=== PATIENT | female | born 1970 | race Caucasian/White ===

== ENCOUNTER 2017-11-09 13:57 | Day surgery (SDC) | payer OTHER, SELFPAY ==
[2017-10-29 14:31] VITALS: BMI 20.4
[2017-11-09] VITALS (7 sets, daily range): BP systolic 104–137; BP diastolic 67–82; PULSE 73–96; RESP 12–18; TEMP 36.3–36.8; O2SAT 97–100
[2017-11-09] MEDS: LACTATED RINGERS 1,000 ML 42 ML IV (14:25)
[2017-11-09] MEDS: ONDANSETRON 4 MG/2 ML INJ IV (14:31)
--- NOTE | 2017-11-09 15:13 | PM.PREOP ---
Pre-operative Note Interval Note Pre-op Check: Yes History & Physical Reviewed by Physician Changes: No
--- NOTE | 2017-11-09 15:44 | SUR.OPER ---
Lithotomy on padded OR bed, head on pillow, arms secured on padded arm boards at <90 degrees abduction. Legs secured in padded yellow fins stirrups.
--- NOTE | 2017-11-09 16:05 | SUR.OPER ---
Lithotomy on padded OR bed, head on pillow, arms secured on padded arm boards at <90 degrees abduction. Legs secured in padded yellow fins stirrups.
[2017-11-09] MEDS: LIDOCAINE 1% 30 ML INJ INJ (16:11)
--- NOTE | 2017-11-09 16:30 | PM.GYNOP.1 ---
Operative Date/Time/Diagnoses Date of procedure: 11/09/17 Time of procedure: 16:30 Pre-op diagnosis: endometrial polyp Post-op diagnosis: other (probable submucous fibroid) Procedure: Procedures Operation Date: 11/09/17 14:45 Actual Procedures Side Surgeon p Hysteroscopy Nik Torres MD
--- NOTE | 2017-11-09 16:32 | PM.GYNOP.1 ---
Procedure: Procedures Operation Date: 11/09/17 14:45 Actual Procedures Side Surgeon p Hysteroscopy Nik Torres MD Indications: breakthrough bleeding, endometrial mass Associate Store Director: Crystal Javed Anesthesia Type: General and Peripheral nerve block Operative Notes Findings: EUA revealed a normal anteverted uterus and normal adnexa Operative findings: Uterus sounded to 7 cm. Endometrial mass originating from the fundus with the appearance of a submucous myoma. Just lateral to origin of myoma, perforation, likely caused by hysteroscope. Closure Type: not applicable Specimen(s): none Estimated blood loss (mL): 10 Blood products transfused: none Procedure in detail: The patient was taken to the operating room and laid supine on the operating table where she was given general anesthesia by LMA. A time-out was performed. She was placed in low lithotomy stirrups and prepped and draped in the usual sterile fashion. An exam under anesthesia was performed. A speculum was placed in her vagina and a paracervical block of 1% lidocaine with a total of 20cc was placed. The cervix was sounded to 7 cm and dilated to a #8 Hegar dilator. A 12 degree hysteroscope was inserted into the uterine cavity without difficulty, but visualization was challenging due to the large myoma filling the visual field and yellow fat and bowel was also noted in the visual field. When the hysteroscope was withdrawn, a fundal perforation immediately adjacent to the origin of the myoma was seen. It was elected to terminate the case at this point. It was judged that the likelihood of untoward sequelae of a fundal perforation was small and did not warrant further intervention. Complications: other (fundal perforation) Post-operative Condition: stable Disposition: PACU Plan for aftercare: home
--- NOTE | 2017-11-09 16:47 | SUR.PHASEI ---
pt resting comfortably. vss. dr trujillo to talk to pt's mom.
[2017-11-09] MEDS: fentaNYL 100 MCG/2 ML INJ 50 MCG IV (17:02)
--- NOTE | 2017-11-09 17:03 | SUR.PHASEI ---
dr trujillo spoke to pt at the bedside, pt c/o back pain, medicated with fentanyl.
[2017-11-09] MEDS: KETOROLAC 30 MG/ML VIAL IV (17:14)
--- NOTE | 2017-11-09 17:18 | SUR.PHASEI ---
dr rodriguez to bedside- torodol given as ordered.
--- NOTE | 2017-11-09 17:23 | SUR.PHASEI ---
to opd stable no drainage on steve pad
--- NOTE | 2017-11-09 18:05 | SUR.PHASEII ---
pt dressed and ready to go, vomited approximately 100 mls of fld. felt better after wards. dr burgos aware. pt left when ready and left in stable condition, quarter size bloody drainage on peripad. abdomen sot.
== END 2017-11-09 18:00 | disposition home or self-care (01) ==
PROVIDERS: Visit Provider Obstetrics & Gynecology
PROC: 0UDB8ZZ Extraction of Endometrium, Via Natural or Artificial Opening Endoscopic (ICD-10-PCS; CPT 58558; principal; 2017-11-09 14:45)
DX: D25.9 Leiomyoma of uterus, unspecified (principal); S37.69XA Other injury of uterus, initial encounter; X58.XXXA Exposure to other specified factors, initial encounter
CPT/HCPCS: 58555; J1100; J1885; J2250; J2405; J2704; J3010

== ENCOUNTER → 2017-12-16 09:32 | Outpatient (CLI) | payer OTHER, SELFPAY ==
[2017-12-16 09:57] LABS: Add Manual Diff / Slide Review NO; Basophils Percent Auto 0.8 % (0-2); Eosinophils Percent Auto 1.2 % (2-4); Hematocrit 38.2 % (36-46); Hemoglobin 13.3 g/dL (12.0-16.0); Lymphocytes Percent Auto 24.8 % (25-40); Mean Corpuscular HGB Conc 34.7 % (30-36); Mean Corpuscular Hemoglobin 30.5 PG (26-34); Mean Corpuscular Volume 87.8 fL (80-100); Neutrophils Absolute Auto 3900 /uL (3000-5900); Neutrophils Percent Auto 66.2 % (50-75); Platelet Count 231 X10^3/uL (150-400); Red Blood Cell Count 4.35 X10^6/uL (4.0-5.2); White Blood Cell Count 5.9 X10^3/uL (4.5-11.0)
[2017-12-16 10:12] LABS: Appearance Urine UA CLEAR; Bilirubin Urine UA NEGATIVE (NEGATIVE); Color Urine UA YELLOW; Glucose Urine UA NEGATIVE (Normal); Ketones Urine UA TRACE (NEGATIVE); Leukocyte Esterase Urine UA NEGATIVE (NEGATIVE); Nitrite Urine UA Negative (Negative); Occult Blood Urine UA 3+ (Negative); Protein Urine UA NEGATIVE (Negative); Urobilinogen Urine UA 0.2 E.U./dL (0.2)
[2017-12-16 11:17] LABS: Bacteria Urine Moderate (10-30); Mucus Urine 2+ (Negative); RBC Urine 5-10/HPF (0-5/HPF); Squamous Epithelial Cell Urine 1-5 /HPF; WBC Urine 0-1/HPF (0-5/HPF)
== END ==
PROVIDERS: Family Provider Family Medicine; PCP Family Medicine; Visit Provider Obstetrics & Gynecology
DX: N93.9 Abnormal uterine and vaginal bleeding, unspecified (principal)
CPT/HCPCS: 36415; 81001; 85025; 86850; 86900; 86901; 87086

== ENCOUNTER 2017-12-18 08:16 | Inpatient (IN) | payer OTHER, SELFPAY ==
[2017-12-16 12:18] VITALS: BMI 18.9
[2017-12-18] VITALS (14 sets, daily range): BP systolic 90–115; BP diastolic 49–78; PULSE 64–95; RESP 15–18; TEMP 36.2–37.2; O2SAT 97–100; BMI 18.9
--- NOTE | 2017-12-18 | PATH_ITS ---
[facility] Accession Number: [id number] . 01 Material submitted: . UTERUS, CERVIX AND BILATERAL FALLOPIAN TUBES . 02 Diagnosis: Uterus Including Cervix With Bilateral Fallopian Tubes: Inactive endometrium, negative for atypia. Single submucous leiomyoma, fundus. Bilateral chronic salpingitis with associated tubal scarring. MRV/12/23/2017 . 02 Electronically signed: . Aidan Jones MD, Pathologist NPI- [id number] . 01 Gross description: . Received in formalin, labeled uterus, cervix and bilateral fallopian tubes, is a uterus (66 grams, 4.0 cm AP, 8.1 cm SI, 4.7 cm ML) with an attached fimbriated fallopian tube (length-6.1 cm, diameter-0.5 cm) and a detached fimbriated fallopian tube (length-6.0 cm, diameter-0.5 cm). The ovaries are absent. The specimen cannot be oriented as to anterior and posterior. The cervix (2.0 cm AP, 3.0 cm ML) has a transverse os and patent endocervical canal. The endometrial cavity contains a solid firm white whorled well-circumscribed homogenous pedunculated nodule (1.8 x 1.2 x 0.8 cm). The endometrium (average thickness-0.1 cm) is mares-ordoñez smooth and flat. The myometrium (thickness-1.3 cm) is mares-white with a lacy appearance and is, otherwise, unremarkable. The serosa is pale mares smooth and dull. The fallopian tubes have dark maroon dull serosa and ordoñez unremarkable lumens. Section code: (A1) cervix; (A2) cervix, opposite side; (A3-A5) endomyometrium; (A6-A8) endomyometrium, opposite side; (A9) attached fallopian tube, cordage sales representative serial section; (A10) attached fimbria, bivalved, entirely submitted; (A11) detached fallopian tube, cordage sales representative serial section; (A12) detached fimbria, bivalved, entirely submitted. ([id number]) /[facility] . 02 Pathologist provided ICD-10: D25.0 . 02 CPT . 241569 Specimen Comment: A duplicate report has been generated due to demographic updates. Performed at: 01 [facility] [address] [id number] MD German Parada MD Phone: [phone] Performed at: 02 [facility] [address] [place] [id number] MD Anton James MD Phone: [phone]
[2017-12-18] MEDS: SCOPOLAMINE 1 PATCH TOP (08:30)
[2017-12-18] MEDS: LACTATED RINGERS 1,000 ML 42 ML IV (08:40)
--- NOTE | 2017-12-18 08:40 | PM.PREOP ---
Pre-operative Note Interval Note Pre-op Check: Yes History & Physical Reviewed by Physician Changes: No
[2017-12-18] MEDS: CEFAZOLIN 2 GM/100 ML FROZ.PIGGY IV (09:30)
--- NOTE | 2017-12-18 10:20 | SUR.OPER ---
Lithotomy on padded OR bed. Salix Pad Positioner under torso. Head on pillow, arms padded and tucked at sides. Legs secured in padded yellow fins stirrups.
[2017-12-18] MEDS: BUPIVACAINE 0.25% (PF) VIAL 30 ML INJ (10:28)
[2017-12-18] MEDS: LIDOCAINE 1% W/EPI INJ 20 ML INJ (10:29)
[2017-12-18] MEDS: LACTATED RINGERS 1,000 ML 100 ML IV (13:21)
[2017-12-18] MEDS: OXYCODONE/ACETAMINOPHEN 5/325 TABLET 1 TAB PO ×2 (13:21→18:31)
--- NOTE | 2017-12-18 14:00 | P.OP_ITS ---
Operative Date/Time/Diagnoses Date of procedure: 12/18/17 Time of procedure: 09:30 Pre-op diagnosis: Abnormal uterine bleeding, submucosal leiomyoma Post-op diagnosis: other (SALAS, abdominal and pelvic adhesions) Procedure: Procedures Operation Date: 12/18/17 09:15 Actual Procedures Side Surgeon p Laparoscopic Assisted Vag Hysterectomy;Bilat salpingectomy,poss bilat oophorectomy,poss cystoscopy Crystal Javed MD Indications: The patient is a 47-year-old 4 para 1 abortus 3 (living 2) female here for laparoscopic-assisted vaginal hysterectomy for definitive surgical management of breakthrough bleeding. Her ultrasound showed a suspected recurrent endometrial polyp (versus possible persistent polyp from last year). Attempts at removal of the polyp with hysteroscopy x2 have been ineffective for long-term management. Her 1st hysteroscopy was last year, and the polyp was thought to have been removed with the D&C. The 2nd hysteroscopy ended with uterine perforation prior to the start of the dissection. Following counseling regarding management options (repeat trial of hysteroscopy versus definitive surgical management with hysterectomy), she is desiring hysterectomy. She has a history of laparoscopy in 2000, which was performed for infertility and surgical debulking of endometriosis. She reports that surgery was complicated and took much longer than anticipated. However she cannot recall if excessive scar tissue was noted. The expectations, risks, benefits, alternatives, and limitations of surgery were discussed, and the consent was reviewed and signed prior to the date of surgery. Surgeon: Crystal Javed Food And Beverage Cashier: Nik Torres Anesthesia Type: General and Local (0.25% marcaine, 1% lidocaine with epi) Operative Notes Findings: Exam under anesthesia: The uterus is approximately 6 weeks in size and anteverted with no adnexal masses palpable. It felt mobile in the pelvis. Operative findings: Omental adhesions were noted to the right flank anterior peritoneum. There were also filmy bowel adhesions to the right lower quadrant. 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 The left distal fallopian tube was adhered to sigmoid epiploica. The right fallopian tube appeared slightly clubbed. The ovaries were normal in appearance bilaterally. There were scattered, 1-2 mm cystic lesions at the posterior right aspect of the uterus, anterior and slightly adjacent to the right uterosacral ligament, suggestive of possible endometriosis. However, there were no other lesions suggestive of endometriosis. Filmy adhesions were also noted from the bladder to the right round ligament area. Ureteral peristalsis was noted at the completion of the hysterectomy dissection. Closure Type: primary Specimen(s): left tube, right tube and uterus (Uterus and cervix) Applied: catheter Estimated blood loss (mL): 25 Blood products transfused: none Procedure in detail: The patient was taken to the operating room, where general endotracheal anesthesia was administered without complications. The patient was placed into the low dorsal lithotomy position with her lower extremities in Yellofin stirrups. Exam under anesthesia was then performed with the findings noted above. Perineum, vagina, and abdomen were then prepped and draped in a sterile fashion. A Hickman catheter was then placed. Procedure time-out was then performed. Attention was first turned to the perineum for placement of the uterine manipulator. A sterile bivalve speculum was inserted into the vagina, then the anterior lip of the cervix was grasped with a single-tooth tenaculum. The cervix was then serially dilated using Gee dilators until a ZUMI uterine manipulator could be advanced. The balloon was inflated, then the tenaculum and speculum removed from the vagina. Local anesthetic was then injected infraumbilically using 0.25% Marcaine. A vertical skin incision was then made with a scalpel below the umbilicus measuring approximately 7 mm in length. The abdominal wall was then grasped and tented up while a Veress needle was inserted through the incision. Saline drop test was suggestive of intraperitoneal placement. Carbon dioxide gas insufflation was then performed with appropriate opening pressures noted. After instilling approximately 2 L of carbon dioxide, a 5 mm 0 degree laparoscope within a 5 mm trocar was inserted through the anterior layers of the abdominal wall using Optiview technique. The abdomen and pelvis were visualized with the findings as noted above. The patient was placed into Trendelenburg position for better visualization. A second and third trocar was inserted at the patient' s lower quadrants. These were done by first instilling local anesthetic, then incising the skin and inserting a 5 mm trocar under direct visualization using the laparoscopic. An atraumatic grasper was then utilized to manipulate the tissue and improve visualization throughout the pelvis. Attention was first turned to the left distal fallopian tube, which was pulled medially and superiorly. The left tubo-ovarian pedicle was then cross-clamped, cauterized, and cut using the PlasmaKinetic, and the left mesosalpinx dissected to separate the left tube from the ovary. The left round ligament was then cross clamped, cauterized, and cut. Any bleeding was controlled with Bovie cautery The anterior leaf of the broad ligament was undermined with the PlasmaKinetic, and the left aspect of the bladder flap created using Bovie cautery. The left utero-ovarian pedicle was then cross clamped, cauterized, and cut, freeing the left ovary from the uterus and leaving the uterus in situ. Some residual para uterine tissue was freed with Bovie cautery and gentle traction, skeletonizing the left uterine vessels. The left uterine vein and artery were then cross clamped, cauterized, and cut using the PlasmaKinetic, and additional cautery applied as needed to achieve hemostasis. Attention was then turned to the patient's right adnexa. The right fallopian tube dissection was initiated at the cornual region, as the tubo-ovarian ligament was less well seen on this side. The cornual tube was cross-clamped, cauterized, and cut, then the mesosalpinx cauterized and cut until the tubo-ovarian pedicle was cross -clamped, cauterize, and cut. The tube was removed from the abdomen and later sent with the uterine pathology. The right round ligament was then cross clamped, cauterized, and cut and the right anterior leaf of the broad ligament was undermined with the PlasmaKinetic to create the right side of the bladder flap using Bovie cautery. This incision was extended to the midline until the dense adhesion was encountered. The right utero-ovarian pedicle was cross clamped, cauterized, and cut, freeing the right ovary from the uterus and leaving the right ovary in situ. The right uterine vessels were then skeletonized, cross clamped cauterized, and cut. Additional cautery was applied as needed to achieve hemostasis. Once hemostasis was ensured, attention was turned to the perineum for the vaginal portion of the case. Instruments were removed from the abdomen, leaving the trocars in place. The majority of the carbon dioxide gas was allowed to escape. The uterine manipulator was removed. A sterile weighted speculum was placed in the posterior vagina and a Beck placed in the anterior vagina. The cervix was grasped with double tooth tenaculum, then 1% lidocaine with epinephrine was injected circumferentially for hemostasis. A circumferential incision was then made with Bovie cautery. Using blunt dissection with the substation operator's finger the vaginal mucosa was gently pushed back off the cervix better visualizing the plane for the anterior-posterior peritoneal entry. The posterior peritoneum was grasped and incised sharply using Metzenbaum scissors. The midline of the posterior vaginal cuff and peritoneum was then tagged with an 0 Vicryl suture for later identification. The Auvard speculum was then inserted into the posterior peritoneum. The anterior peritoneum was then bluntly entered using push with the substation operator's finger and a moistened lap sponge. The Beck was then replaced. The right uterosacral ligament was cross clamped with a Barrington clamp then cut and suture ligated with an 0 Vicryl suture in a Barrington stitch fashion. This was tagged for later identification. This step was performed on the left uterosacral ligament, which was clamped then cut and suture ligated with an 0 Vicryl suture. The right cardinal and inferior uterine vessels were then cross clamped with the Barrington clamp cut and suture ligated with an 0 Vicryl suture. This step was then performed on the patient's left cardinal and uterine vessels as well. The uterus and bilateral fallopian tubes were then removed through the vagina. The pedicles were inspected. Some residual bleeding at the area of the left uterine vessels was cross-clamped with a right angle clamp then suture ligated with 0 vicryl in a for and aft fashion. Bleeding at the level of the cuff was controlled with Bovie cautery and a figure of eight suture at the left side. The peritoneum was then closed with a pursestring suture of 0 Vicryl, starting anteriorly at the bladder peritoneum including both uterosacral ligaments and skiving across the posterior peritoneum. This was tied down, and the vagina was then irrigated with sterile saline. The vaginal mucosa was then closed with serial [id number] sutures of 0 Vicryl. A sponge stick was then placed into the vagina, and attention returned to the patient's abdomen for inspection of the vaginal cuff from above. Carbon dioxide gas was then reinflated into the abdomen. The cuff was irrigated and suctioned. Some residual bleeding anterior and posterior to the cuff was controlled with a small amount of Bovie cautery. The ovaries were examined and no residual bleeding was noted. The ureters were visualized and peristalsed bilaterally. At this point the laparoscopic portion of the procedure was deemed complete. The carbon dioxide gas was allowed to escape and the trocars removed from the abdomen. The trocar sites were then closed with 4-0 Monocryl in a subcuticular fashion. Exofin skin glue was then applied. The sponge-stick was then removed from the vagina. At this point the procedure was deemed complete. Sponge, lap, and needle count were correct x3. The patient was subsequently awakened, extubated, and transferred to the PACU in stable condition. Complications: none Post-operative Condition: stable Disposition: Acute Care Plan for aftercare: Admit to spaulding for recovery overnight, then discharge to home with precautions and limitations per handout.
[2017-12-18] MEDS: DOCUSATE 250 MG CAPSULE PO (20:30)
--- NOTE | 2017-12-18 21:54 | PC.NURSE ---
SHIFT NOTE A&Ox3 pleasant and cooperative with care. lap sites x3 to abdominal area with skin slue, CDI. floyd intact, no drainage noted to steve pad. pt c/o some gassy pain and abdominal pain, especially with movement. administered PRN percocet. pt ambulated in hallway x2 this shift (total of 5 laps around the [facility]). pt with R AC IV which failed. per pt report, pre op RN had attempted multiple times to place current IV. floor staff development coordinator attempted to place IV with no success. IV left out at this time as pt not requesting any PRN IV medications, and pt verbally agreeable to increase PO intake of fluids. pt currently resting. call light within reach.
[2017-12-19] VITALS: O2SAT 98
[2017-12-19] MEDS: OXYCODONE/ACETAMINOPHEN 5/325 TABLET 1 TAB PO ×2 (02:46→09:18)
[2017-12-19 03:00] VITALS: BP 91/57; PULSE 58; RESP 16; TEMP 37.1; O2SAT 98
[2017-12-19 06:23] LABS: Add Manual Diff / Slide Review NO; Basophils Percent Auto 0.4 % (0-2); Eosinophils Percent Auto 0.2 % (2-4); Hemoglobin 10.9 g/dL (12.0-16.0); Lymphocytes Percent Auto 15.5 % (25-40); Mean Corpuscular Hemoglobin 30.3 PG (26-34); Mean Corpuscular Volume 86.5 fL (80-100); Monocytes Percent Auto 6.9 % (3-14); Neutrophils Absolute Auto 8500 /uL (3000-5900); Platelet Count 198 X10^3/uL (150-400); Red Blood Cell Count 3.58 X10^6/uL (4.0-5.2); Red Cell Distribution Width 13.6 % (11.6-14.8)
[2017-12-19 06:32] LABS: BUN Creatinine Ratio 17.5 (6-22); Blood Urea Nitrogen 14 mg/dL (7-17); Calcium 8.6 mg/dL (8.4-10.2); Carbon Dioxide 27 mmol/L (22-32); Chloride 104 mmol/L (98-107); Estimated Glomerular Filt Rate > 60.0 mL/min (>60); Glucose 92 mg/dL (70-100); HEMOLYSIS < 15 (0-50); Potassium 3.8 mmol/L (3.4-5.1); Sodium 138 mmol/L (137-145)
[2017-12-19 07:59] VITALS: O2SAT 97
[2017-12-19 08:21] VITALS: BP 97/59; PULSE 63; RESP 15; TEMP 36.8; O2SAT 97
[2017-12-19] MEDS: DOCUSATE 250 MG CAPSULE PO (09:18)
--- NOTE | 2017-12-19 11:18 | P.PN_ITS ---
Subjective Date Patient Seen: 12/19/17 Time Patient Seen: 11:15 Interval history: The patient did well overnight. She has been up and ambulating. Hickman catheter was removed, and she has been voiding without any problems. Pain has been well controlled with oral pain medication, and she is tolerating a regular diet without any nausea or vomiting. She feels ready for discharge to home today. Exam Vital Signs (past 8 hours): - 12/19/17 07:59 12/19/17 08:21 Temperature 98.2 F Pulse Rate 63 Respiratory Rate 15 Blood Pressure 97/59 L Pulse Oximetry 97 97 Oxygen Delivery Method Room Air Oxygen Flow Rate 0 Narrative Exam Narrative: General: The patient is asleep in bed but easily aroused in no apparent distress. Abdomen: Soft, flat, appropriately tender. Incisions: Laparoscopy incisions present x3. Skin edges well-approximated and covered with skin glue. There is no erythema, discharge, separation, or bruising noted. Extremities: Warm and well perfused with no clubbing, cyanosis, or edema. Objective Labs Result Diagrams: 12/19/17 06:07 12/19/17 06:07 Labs: Laboratory Results - last 24 hr 12/19/17 12/19/17 06:07 06:07 WBC 11.0 RBC 3.58 L Hgb 10.9 L Hct 31.0 L MCV 86.5 MCH 30.3 MCHC 35.0 RDW 13.6 Plt Count 198 Neut % (Auto) 77.0 H Lymph % (Auto) 15.5 L Mccook % (Auto) 6.9 Eos % (Auto) 0.2 L Baso % (Auto) 0.4 Neut # (Auto) 8500 H Sodium 138 Potassium 3.8 Chloride 104 Carbon Dioxide 27 BUN 14 Creatinine 0.80 Estimated GFR > 60.0 BUN/Creatinine Ratio 17.5 Glucose 92 Calcium 8.6 Assessment & Plan Post-op Postoperative Procedures Operation Date: 12/18/17 09:15 Actual Procedures Side Surgeon p Laparoscopic Assisted Vag Hysterectomy;Bilat salpingectomy,poss bilat oophorectomy,poss cystoscopy Crystal Javed MD Postoperative day: 1 Postoperative status: doing well Postoperative status narrative: Postoperative day 1 status post laparoscopic- assisted vaginal hysterectomy with bilateral salpingectomies and doing well. She is meeting discharge criteria. Postoperative plan: routine post-op care and discharge Postoperative plan narrative: Surgical findings and images reviewed. Reviewed postoperative precautions and limitations. Discharge to home today. Time Spent With Patient less than 15 minutes Quality VTE Deep Vein Thrombosis/Pulmonary Embolism Present on Admission: No
--- NOTE | 2017-12-19 12:19 | CM.DANOTE ---
Patient is a 47 year old female who was admitted on 12/18/17 for Hysterectomy. Pt has [employer] for insurance and her PCP is Dr. Fontana. EMR was reviewed. Per MD, pt tolerated procedure well and ambulating the halls, voiding without difficulty, and tolerating regular diet and no identified barriers to discharge. Per RN, pt has ambulated hallways with spouse multiple times and no concerns at this time. Plan: Patient to d/c home via spouse POV today and no SW needs at this time. DIONNA Clement Discharge Planning/Care Management CM Discharge Assessment Start: 12/19/17 12:17 Freq: Status: Active Protocol: Document 12/19/17 12:17 BF (Rec: 12/19/17 12:19 BF [id number]) Discharge Planning Assessment Assigned Foundry Process Engineer DIONNA Henson Advance Directives? No History Provided By Patient Medical Record Has Patient been admitted in last 30 No days? Prior Living Arrangements House Household Members spouse children Type of transporation used prior to Drives own vehicle admit Independent with ADL's Yes Is patient alert and oriented? Yes Caregiver for Another Yes: children Barriers to Discharge No Discharge Plan Home Transportation Arrangement Family to provide transport at d/c Referrals Initiated None needed Whiteboard Updated in Patient Room with No name and ext. # of Foundry Process Engineer Review Status In Process Please Provide Date Initial DC 12/19/17 Assessment Was Performed Next Review Type Continued Stay Review Pre-Anesthesia Assessment Start: 12/16/17 12:18 Freq: Status: Active Protocol: Document 12/16/17 12:18 VLYeison (Rec: 12/16/17 12:49 [facility] [id number]) Pre-Anesthesia Assessment Patient Information Reviewed Via Chart Review Seen Specialist in Last 12 Months Yes Specialist Seen Poultry Hatchery Laborer Primary Language Australian Pack Master Required No Height 165.1 cm Weight 51.71 kg Body Mass Index (BMI) 18.9 Hearing Ability Normal Visual Impairment No Limitations Visual Assist None Dentition Type Teeth, Natural Present Barriers to Learning None Hx Anesthesia Reactions Yes: Vomiting - Admitted Hx Family Anesthesia Reaction No Hx Malignant Hyperthermia No Hx Blood Transfusions No Staff Counselor No alcohol intake current Smoking Status Never smoker Substance Use Type does not use History of Falling (Recent or History of No ) Patient is completely paralyzed or No completely immobile Mental Status Oriented to own ability Is patient on oxygen? No Does patient have HANNA/SOB No Hx Sleep Apnea No CPAP/BIPAP use not prescribed Suspected Sleep Apnea No Currently Taking a Beta Verito No Hx Chest Pain No Hx SOB No Hx Syncope or Dizziness No Anti-Coagulant Therapy No Has a Manager Studio No Cardiac Testing No Hx Pacemaker/ICD No Cardiac Clearance Received Not Applicable Urinary Catheter Present No Hx Urinary Self Catheterization No Diabetes No Hx Drug Resistant Organism No Presence of External or Internal Medical No Devices Marital Status Lives With spouse children Patient Discharge Plan Description Return Home Feels Safe in Current Environment Yes Been Physically Hurt or Threatened By a No Person in Current Environment Do You Have Any Spiritual Beliefs That No May Affect Your HC Choices? Do You Have Any Cultural Practices That No May Affect Your HC Choices? Advance Directives? No PAC Comment Data taken from previous admission and current [facility] records
--- NOTE | 2017-12-19 12:21 | PC.NURSE ---
Discharge pt states pain controlled with percocet. Pt has Rx at home for post-op care including pain medication. d/c instructions provided to pt and . pt aware she has f/u apt previously scheduled with MD. Also aware to contact MD with any questions or concerns. Pt states she took all belongings home with her. Pt left hospital with and [employer] escort.
== END 2017-12-19 12:25 | disposition home or self-care (01) | DRG 743 ==
PROVIDERS: Admitting Provider Obstetrics & Gynecology; Family Provider Family Medicine; PCP Family Medicine; Visit Provider Obstetrics & Gynecology
PROC: 0UT9FZZ Resection of Uterus, Via Natural or Artificial Opening With Percutaneous Endoscopic Assistance (ICD-10-PCS; principal; 2017-12-18 09:15)
DX: N93.9 Abnormal uterine and vaginal bleeding, unspecified (principal); D25.0 Submucous leiomyoma of uterus
CPT/HCPCS: 36415; 80048; 85025; 88309; J0131; J0690; J1100; J1885; J2250; J2405; J2704; J3010

== ENCOUNTER → 2019-12-07 09:27 | Outpatient (CLI) | payer OTHER, SELFPAY ==
[2017-12-18 13:28] VITALS: BMI 18.9
--- NOTE | 2019-12-07 | DI.MG.S_ITS ---
BILATERAL DIGITAL DIAGNOSTIC MAMMOGRAM 3D/2D: 12/07/2019 CLINICAL: Left breast lump. Comparison is made to exams dated: 07/07/2018 mammogram and 07/06/2017 mammogram - [facility]. The tissue of both breasts is extremely dense, which lowers the sensitivity of mammography. No significant masses, calcifications, or other findings are seen in either breast. IMPRESSION: INCOMPLETE: NEEDS ADDITIONAL IMAGING EVALUATION There is no abnormality seen in the left breast to correspond with the area of clinical concern, palpable abnormality, and pain indicated by triangular marker in the middle depth in the upper outer quadrant, however, ultrasound is recommended which is scheduled to immediately follow this examination. This exam was interpreted at Station ID: [id number]. NOTE: For mammograms, a report in lay terms will be sent to the patient. Approximately 15% of breast malignancies will not be visualized mammographically. In the management of a palpable breast mass, a negative mammogram must not discourage biopsy of a clinically suspicious lesion. Electronically Signed By: Adriel Muhammad M.D. aty/:12/07/2019 10:28:38 ACR BI-RADS Category 0: Incomplete [id number]
--- NOTE | 2019-12-07 | DI.US.S_ITS ---
ULTRASOUND OF LEFT BREAST: 12/07/2019 CLINICAL: Palpable, tender left breast lump. Comparison is made to exams dated: 12/07/2019 mammogram - [facility], 07/07/2018 mammogram, and 07/06/2017 mammogram - [facility]. Color flow and real-time ultrasound of the left breast were performed. Meyer scale images of the real-time examination were reviewed. There is a 1 cm x 0.9 cm x 0.8 cm oval complicated cyst in the left breast superior lateral quadrant posterior depth 7 cm from the nipple at approximately the 1:30 position. This oval complicated cyst is hypoechoic with internal echoes. This correlate as palpated and with area of clinical concern but is not seen on the prior mammogram. Color flow imaging demonstrates that there is no vascularity present. There is also a simple left breast cyst measuring approximately 0.8cm in size in the 1:00 position, 7 cm from the nipple. IMPRESSION: PROBABLY BENIGN The 1 cm x 0.9 cm x 0.8 cm oval complicated cyst in the left breast resembles a complicated cyst and is probably benign. A follow-up left mammogram and an ultrasound in 6 months is recommended to demonstrate stability. Additionally, there is an adjacent 0.8cm simple cyst which is benign. Findings and recommendations were conveyed to the patient during today's visit. This exam was interpreted at Station ID: [id number]. Electronically Signed By: Adriel Muhammad M.D. aty/:12/07/2019 16:20:00 letter sent: Followup Recommended Ultrasound BI-RADS: 3 Probably benign
== END ==
PROVIDERS: Family Provider Family Medicine; PCP Family Medicine; Referring Provider Family Medicine; Visit Provider Family Medicine
DX: R92.8 Other abnormal and inconclusive findings on diagnostic imaging of breast; N60.01 Solitary cyst of right breast
CPT/HCPCS: 76642; 77066; G0279

== ENCOUNTER → 2020-01-02 08:10 | Outpatient (CLI) | payer OTHER, SELFPAY ==
[2019-12-22 10:48] VITALS: BMI 18.9
--- NOTE | 2020-01-02 08:11 | DI.US.S_ITS ---
LIMITED ULTRASOUND OF RIGHT BREAST: 01/02/2020 CLINICAL: Palpable right breast lump. Right breast pain upper mid region. Comparison is made to exams dated: 12/07/2019 mammogram - [facility], 07/07/2018 mammogram, 07/06/2017 mammogram - [facility], and 12/07/2019 ultrasound - [facility]. Color flow ultrasound of the right breast 11-1 o'clock region was performed. Meyer scale images of the real-time examination were reviewed. There is a benign 1.2 cm x 1 cm x 0.6 cm oval cyst in the right breast at 12 o'clock middle depth. This oval cyst is anechoic with posterior acoustic enhancement. This correlates as palpated but was not seen on the prior mammogram. IMPRESSION: BENIGN There is no sonographic evidence of malignancy. The 1.2 cm x 1 cm x 0.6 cm oval cyst in the right breast is consistent with a simple cyst and is benign. There are no abnormalities seen in the right breast to correspond with the pain at 1 and 11 o'clock, however, clinical correlation is recommended. Future imaging is recommended as follows: 06/05/2020 left mammogram and an ultrasound. This exam was interpreted at Station ID: [id number]. Electronically Signed By: Darwin miles/sharri:01/02/2020 12:56:13 letter sent: Clinical Evaluation Ultrasound BI-RADS: 2 Benign
== END ==
PROVIDERS: Family Provider Family Medicine; PCP Family Medicine; Referring Provider Family Medicine; Visit Provider Specialist
DX: N64.4 Mastodynia (principal); N60.01 Solitary cyst of right breast
CPT/HCPCS: 76642

== ENCOUNTER → 2020-03-05 12:29 | Outpatient (CLI) | payer OTHER, SELFPAY ==
[2019-12-22 10:48] VITALS: BMI 18.9
--- NOTE | 2020-03-05 | PATH_ITS ---
Note [facility] Accession Number: [id number] TESTS RESULT FLAG UNITS REF RANGE LAB Clinician Provided Cytology Information No. of containers..01 Other (Miscellaneous) RIGHT BREAST CYST DIAGNOSIS: RIGHT BREAST CYST, FINE NEEDLE ASPIRATION. NEGATIVE FOR MALIGNANT CELLS. FAVOR PROLIFERATIVE FIBROCYSTIC CHANGES, WITH MILD ATYPIA, SEE COMMENT. COMMENT: EXAMINATION OF THE THIN PREP AND CELL BLOCK SLIDES REVEALS FEW COHESIVE GROUPS OF DUCTAL CELLS WITH OCCASIONAL CROWDING AND MILD CYTOLOGIC ATYPIA. CLINICAL AND RADIOLOGIC CORRELATION IS RECOMMENDED TO ENSURE THAT THE CYST IS ADEQUATELY SAMPLED. Pathologist ICD10: 01 N64.59 Marleni Gay MD, Pathologist NPI- [id number] Aman Christopher, Schedule Checker ([facility]) 01 30 CC, YELLOW, CLEAR RECIEVED: IN CYTOLYT WITH BLUE CAP CONTAINER. /VDU 03/06/2020 0619 Local FLAG LEGEND: L-Low Normal,H-High Normal,LL-Alert Low,HH-Alert High <-Panic Low,>-Panic High,A-Abnormal,AA-Critical Abnormal Performed at: 01 =Z [facility] [address], [place] [address] German Parada MD, Performed at: 01 [facility] [address], [place], [place] [id number] MD German Parada MD Phone: [phone]
--- NOTE | 2020-03-05 | DI.US.S_ITS ---
ULTRASOUND GUIDED FINE NEEDLE ASPIRATION LEFT BREAST WITH POST ULTRASOUND IMAGIN03/05/2020 CLINICAL: Left breast cyst fna. Correlation is made to exams dated: 12/07/2019 ultrasound, 12/07/2019 mammogram - [facility], 07/07/2018 mammogram, and 07/06/2017 mammogram - [facility]. A fine needle aspiration was performed for the concerning 0.8 cm x 0.9 cm x 1 cm circumscribed round mildly complex cyst located in the left breast at 1:30 o'clock 7 cm from the nipple. This was described on the previous ultrasound report, and contains low level internal echos. The skin was prepped in the usual manner. Local anesthetic was administered to the access site. The abnormality was approached from the lateral aspect. An 18 gauge needle was percutaneously placed into the abnormality under ultrasound guidance. Once the needle was documented to be in the correct location, a specimen was obtained, draining the benign internal brownish turbit fluid fully. A sterile dressing was applied to the access site. Post drainage ultrasound imaging was obtained. IMPRESSION: FINE NEEDLE ASPIRATION BENIGN Fine needle aspiration of the 1 cm complex cyst in the left breast 1:30 o'clock 7 cm from the nipple was successful. Aspiration yielded benign brownish turbit fluid and the cyst collapsed. Cytology is negative for malignant cells. Imaging findings are concordant. Recommend returning to screening mammogram. This exam was interpreted at Station ID: [id number]. Karthik Rollins M.D. [facility],slc/:03/14/2020 14:24:54
--- NOTE | 2020-03-05 | DI.US.S_ITS ---
ULTRASOUND GUIDED FINE NEEDLE ASPIRATION RIGHT BREAST WITH POST ULTRASOUND IMAGIN03/05/2020 CLINICAL: Right breast cyst. Correlation is made to exams dated: 01/02/2020 ultrasound, 12/07/2019 mammogram - [facility], 07/07/2018 mammogram, and 07/06/2017 mammogram - [facility]. A needle aspiration was performed for the concerning 1 cm x 1 cm x 1 cm circumscribed lobulated complex cyst located in the right breast at 12 o'clock middle depth 3 cm from the nipple. This was described on the previous ultrasound report. The skin was prepped in the usual manner. Local anesthetic was administered to the access site. The abnormality was approached from the lateral aspect. An 18 gauge needle was percutaneously placed into the abnormality under ultrasound guidance. Once the needle was documented to be in the correct location, a specimen was obtained. A sterile dressing was applied to the access site. Post procedure ultrasound imaging was obtained. The specimen was sent to the laboratory for cytological analysis. IMPRESSION: FINE NEEDLE ASPIRATION BENIGN Fine needle aspiration of the 1 cm mildly complex cyst in the right breast 12:00 3 cm from the nipple was successful. Pathology demonstrates Negative for malignant cells. Favor proliferative fibrocystic changes, with mild atypia, see comment. Imaging findings are concordant. A follow-up ultrasound of the right breast in 6 months is recommended. This exam was interpreted at Station ID: [id number]. Karthik Rollins M.D. [facility],slc/:03/14/2020 15:23:24
== END ==
PROVIDERS: Family Provider Family Medicine; PCP Family Medicine; Referring Provider Specialist; Visit Provider Specialist
DX: N60.01 Solitary cyst of right breast (principal); N60.02 Solitary cyst of left breast
CPT/HCPCS: 10005